=== PATIENT | female | born 1975 | race Caucasian/White ===

== ENCOUNTER → 2017-06-14 | Outpatient (CLI) | payer OTHER | LOC: RAD 17:10 | DX: M75.82 Other shoulder lesions, left shoulder (principal); S43.492A Other sprain of left shoulder joint, initial encounter; X58.XXXA Exposure to other specified factors, initial encounter ==

== ENCOUNTER → 2018-07-21 | Outpatient (CLI) | payer MEDICAID | LOC: RAD 07:35 | DX: R33.9 Retention of urine, unspecified (principal); N18.1 Chronic kidney disease, stage 1 ==